=== PATIENT | female | born 1960 | race Caucasian/White ===

== ENCOUNTER 2016-09-22 19:18 | Emergency (ER) | payer MEDICAID, OTHER ==
[~2016-09-22] VITALS: Ht 167.6 cm; Wt 70.0 kg
[2016-09-22 19:24] VITALS: BP 170/84
[2016-09-22] MEDS ORDERED: KETOROLAC 30 MG/1 ML ONE (19:51)
[2016-09-22] MEDS ORDERED: KETOROLAC 30 MG/1 ML IM ONE (20:00)
== END 2016-09-22 21:23 | disposition home or self-care (01) ==
LOC: ED 21:19
DX: M50.321 Other cervical disc degeneration at C4-C5 level (principal); M50.322 Other cervical disc degeneration at C5-C6 level; I10 Essential (primary) hypertension; V43.52XA Car driver injured in collision with other type car in traffic accident, initial encounter; Y92.410 Unspecified street and highway as the place of occurrence of the external cause
CPT/HCPCS: 72125; 96372; 99284; J1885